=== PATIENT | male | born 1960 | race African-American/Black ===

== ENCOUNTER 2020-02-26 08:27 | Inpatient (IN) ==
[2020-02-26] MEDS ORDERED: PIPERACILLIN/TAZOBACTAM 3,375 MG in SODIUM CHLORIDE 0.9% 100 ML IV STA (09:39)
[2020-02-26] MEDS ORDERED: SODIUM CHLORIDE 0.9% 1,000 ML IV STA ×2 (09:39→11:32)
[2020-02-26 10:03] LABS: Basophils % 0.2 % (0.0-0.8); Hematocrit 42.4 VOL% (42.0-52.0); Hemoglobin 13.8 GM/DL (14.0-18.0); Immature Granulocytes Absolute 0.21 #; Lymphocytes % 4.5 % (21.2-54.2); Mean Corpuscular HGB Conc 32.5 GM/DL (32-36); Mean Corpuscular Volume 84.1 FL (87-102); Monocytes % 7.3 % (1.7-12.7); Platelet Count 504 T/CUMM (130-400); Red Blood Count 5.04 MC/CUMM (3.8-5.5); Red Cell Distribution Width 11.9 % (9.3-17.3); White Blood Count 21.5 T/CUMM (4-12)
[2020-02-26 10:21] LABS: Band Neutrophils 2 % (0-10); Lymphocytes 11 % (20-55); Segmented Neutrophils 79 % (50-85); Total Cells Counted 100
[2020-02-26 10:22] LABS: Hypochromasia Slight; Platelet Estimate Increased
[2020-02-26 10:29] LABS: Albumin 2.2 G/DL (3.4-5.0); Bilirubin,Total 0.6 MG/DL (0.2-1.0); Calcium 9.2 MG/DL (8.5-10.1); Osmolality,Calculated 273.9 MOS/KG (273-304); Total Protein 8.1 G/DL (6.4-8.3)
[2020-02-26] MEDS ORDERED: CLINDAMYCIN INJ 900 MG in PREMIX 1 EACH IV ONE (11:11)
[2020-02-26] MEDS ORDERED: HYDROmorphone 2 MG/1 ML VIAL IV PRN (11:12)
[2020-02-26] MEDS ORDERED: ONDANSETRON 4 MG/2 ML VIAL IV PRN ×2 (11:12→19:59)
[2020-02-26] MEDS ORDERED: GLUCAGON 1 MG VIAL IM PRN (11:12)
[2020-02-26] MEDS ORDERED: ACETAMINOPHEN 325 MG TABLET PO PRN (11:12)
[2020-02-26] MEDS ORDERED: DEXTROSE 50% 25 GM/50 ML VIAL IV PRN (11:12)
[2020-02-26] MEDS ORDERED: VANCOMYCIN INJ 1,000 MG in SODIUM CHLORIDE 0.9% 250 ML IV SCH (11:30)
[2020-02-26] MEDS ORDERED: hydrALAZINE 20 MG/1 ML VIAL ONE (11:31)
[2020-02-26] MEDS ORDERED: hydrALAZINE 20 MG/1 ML VIAL IV STA (11:32)
[2020-02-26] MEDS ORDERED: VANCOMYCIN 1,000 MG VIAL ONE (13:37)
[2020-02-26] MEDS: INSULIN REGULAR 100 UNIT/ML SUBCUT SCH ×2 (14:15→16:31)
[2020-02-26] MEDS ORDERED: INFLUENZA VIRUS VACCINE 0.5 ML SYRINGE IM ONE (14:25)
[2020-02-26] MEDS: LACTATED RINGERS 1,000 ML IV SCH (15:33)
[2020-02-26] MEDS: VANCOMYCIN INJ 1,500 MG in SODIUM CHLORIDE 0.9% 500 ML IV SCH (15:33)
[2020-02-26] MEDS ORDERED: SODIUM CHLORIDE 0.65% NASAL SPRAY 45 ML BOTTLE BOTH NARES PRN (16:25)
[2020-02-26] MEDS: PIPERACILLIN/TAZOBACTAM 3,375 MG in SODIUM CHLORIDE 0.9% 100 ML IV SCH (17:57)
[2020-02-26] MEDS ORDERED: LIDOCAINE 1% 20 ML VIAL ONE (18:16)
[2020-02-26] MEDS ORDERED: fentaNYL 100 MCG/2 ML VIAL ONE (19:54)
[2020-02-26] MEDS ORDERED: LIDOCAINE 2% 5 ML VIAL ONE (19:54)
[2020-02-26] MEDS ORDERED: propofoL 200 MG/20 ML VIAL IV ONE (19:54)
[2020-02-26] MEDS ORDERED: SEVOFLURANE 1 UNIT/15 MINUTE INH ONE (19:54)
[2020-02-26] MEDS ORDERED: DEXAMETHASONE 4 MG/1 ML VIAL ONE (19:55)
[2020-02-26] MEDS ORDERED: ONDANSETRON 4 MG/2 ML VIAL ONE (19:55)
[2020-02-26] MEDS ORDERED: PHENYLEPHRINE 1 MG/10 ML SYRINGE IV ONE (19:55)
[2020-02-26] MEDS: HYDROmorphone 2 MG/1 ML VIAL IV PRN ×4 (20:05→20:26)
[2020-02-27] MEDS: PIPERACILLIN/TAZOBACTAM 3,375 MG in SODIUM CHLORIDE 0.9% 100 ML IV SCH ×3 (01:24→17:49)
[2020-02-27] MEDS: DOCUSATE SODIUM 100 MG CAPSULE PO SCH ×3 (01:26→21:48)
[2020-02-27] MEDS: INSULIN REGULAR 100 UNIT/ML SUBCUT SCH ×5 (01:27→21:48)
[2020-02-27] MEDS: VANCOMYCIN INJ 1,500 MG in SODIUM CHLORIDE 0.9% 500 ML IV SCH ×2 (02:35→13:54)
[2020-02-27 06:33] LABS: Albumin 1.9 G/DL (3.4-5.0); Bilirubin,Total 1.1 MG/DL (0.2-1.0); Calcium 8.7 MG/DL (8.5-10.1); Osmolality,Calculated 280.1 MOS/KG (273-304); Total Protein 7.4 G/DL (6.4-8.3)
[2020-02-27 08:29] LABS: Bilirubin,Urine Negative (Negative); Blood, Urine Small mg/dL (Negative); Glucose,Urine (UA) >=500 mg/dL (Negative); Ketones,Urine 5 mg/dL (Negative); Mucus,Urine Occasional /LPF (Occasional); Nitrite,Urine Negative (Negative); Protein,Urine 100 MG/DL; RBC,Urine 3 /HPF (0-4); Urine Appearance CLEAR (Clear); Urine Color Yellow (Yellow); Urine Specific Gravity 1.018 (1.001-1.035); WBC,Urine <1 /HPF (0-6)
[2020-02-27] MEDS: PANTOPRAZOLE 40 MG TABLET PO SCH (09:17)
[2020-02-27] MEDS: lisinopriL 10 MG TABLET PO SCH (10:09)
[2020-02-27] MEDS: ENOXAPARIN 40 MG/0.4 ML SYRINGE SUBCUT SCH (10:11)
[2020-02-27] MEDS: LACTATED RINGERS 1,000 ML IV SCH (10:12)
[2020-02-27] MEDS: metFORMIN 500 MG TABLET PO SCH (16:35)
[2020-02-28] MEDS: VANCOMYCIN INJ 1,500 MG in SODIUM CHLORIDE 0.9% 500 ML IV SCH ×2 (01:04→15:12)
[2020-02-28] MEDS: PIPERACILLIN/TAZOBACTAM 3,375 MG in SODIUM CHLORIDE 0.9% 100 ML IV SCH ×3 (02:44→18:13)
[2020-02-28 06:05] LABS: Basophils % 0.2 % (0.0-0.8); Eosinophils % 0.2 % (0.00-10.9); Hematocrit 35.4 VOL% (42.0-52.0); Immature Granulocytes % 0.7 %; Immature Granulocytes Absolute 0.12 #; Lymphocytes # 1.8 10*3/uL (1.4-4.0); Mean Corpuscular HGB Conc 33.1 GM/DL (32-36); Mean Corpuscular Volume 84.9 FL (87-102); Monocytes % 10.5 % (1.7-12.7); Neutrophils % 78.4 % (38.7-73.9); Platelet Count 429 T/CUMM (130-400); Red Blood Count 4.17 MC/CUMM (3.8-5.5); White Blood Count 17.6 T/CUMM (4-12)
[2020-02-28 06:21] LABS: Hemoglobin 11.7 GM/DL (14.0-18.0)
[2020-02-28 06:54] LABS: Calcium 8.2 MG/DL (8.5-10.1)
[2020-02-28] MEDS: INSULIN NPH/REGULAR 70/30 100 UNIT/ML SUBCUT SCH (08:05)
[2020-02-28] MEDS: INSULIN REGULAR 100 UNIT/ML SUBCUT SCH ×4 (08:06→21:20)
[2020-02-28] MEDS: LACTATED RINGERS 1,000 ML IV SCH (08:38)
[2020-02-28] MEDS: PANTOPRAZOLE 40 MG TABLET PO SCH (08:47)
[2020-02-28] MEDS: lisinopriL 10 MG TABLET PO SCH (08:47)
[2020-02-28] MEDS: DOCUSATE SODIUM 100 MG CAPSULE PO SCH ×2 (08:47→21:14)
[2020-02-28] MEDS: ENOXAPARIN 40 MG/0.4 ML SYRINGE SUBCUT SCH (10:48)
[2020-02-28] MEDS: metFORMIN 500 MG TABLET PO SCH (17:40)
[2020-02-28] MEDS: guaiFENesin/DM ER 600-30 MG TABLET PO PRN (21:13)
[2020-02-28] MEDS: VANCOMYCIN INJ 1,250 MG in SODIUM CHLORIDE 0.9% 250 ML IV SCH (22:23)
[2020-02-29] MEDS: LACTATED RINGERS 1,000 ML IV SCH ×2 (01:03→08:20)
[2020-02-29] MEDS: PIPERACILLIN/TAZOBACTAM 3,375 MG in SODIUM CHLORIDE 0.9% 100 ML IV SCH ×3 (01:03→17:49)
[2020-02-29] MEDS: VANCOMYCIN INJ 1,250 MG in SODIUM CHLORIDE 0.9% 250 ML IV SCH ×3 (05:17→21:43)
[2020-02-29] MEDS: INSULIN REGULAR 100 UNIT/ML SUBCUT SCH ×4 (07:33→21:36)
[2020-02-29] MEDS: INSULIN NPH/REGULAR 70/30 100 UNIT/ML SUBCUT SCH ×2 (07:33→16:28)
[2020-02-29] MEDS: lisinopriL 10 MG TABLET PO SCH ×2 (07:57→09:20)
[2020-02-29] MEDS ORDERED: amLODIPine 5 MG TABLET PO SCH (09:00)
[2020-02-29] MEDS: PANTOPRAZOLE 40 MG TABLET PO SCH (09:19)
[2020-02-29] MEDS: DOCUSATE SODIUM 100 MG CAPSULE PO SCH ×2 (09:19→21:36)
[2020-02-29] MEDS: ENOXAPARIN 40 MG/0.4 ML SYRINGE SUBCUT SCH (10:31)
[2020-02-29] MEDS: metFORMIN 500 MG TABLET PO SCH (17:49)
[2020-02-29] MEDS: guaiFENesin/DM ER 600-30 MG TABLET PO PRN (18:00)
[2020-03-01] MEDS: PIPERACILLIN/TAZOBACTAM 3,375 MG in SODIUM CHLORIDE 0.9% 100 ML IV SCH ×3 (01:03→17:18)
[2020-03-01 05:27] LABS: Basophils % 0.2 % (0.0-0.8); Eosinophils # 0.1 10*3/uL (0.0-0.87); Eosinophils % 0.9 % (0.00-10.9); Hematocrit 34.1 VOL% (42.0-52.0); Hemoglobin 11.1 GM/DL (14.0-18.0); Immature Granulocytes % 0.9 %; Immature Granulocytes Absolute 0.13 #; Lymphocytes # 1.6 10*3/uL (1.4-4.0); Lymphocytes % 11.4 % (21.2-54.2); Mean Corpuscular HGB Conc 32.6 GM/DL (32-36); Mean Corpuscular Volume 84.8 FL (87-102); Mean Platelet Volume 9.8 FL (9.6-12.0); Monocytes % 8.8 % (1.7-12.7); Neutrophils % 77.8 % (38.7-73.9); Platelet Count 465 T/CUMM (130-400); Red Blood Count 4.02 MC/CUMM (3.8-5.5); Red Cell Distribution Width 11.9 % (9.3-17.3); White Blood Count 14.3 T/CUMM (4-12)
[2020-03-01] MEDS: VANCOMYCIN INJ 1,250 MG in SODIUM CHLORIDE 0.9% 250 ML IV SCH ×3 (06:12→22:25)
[2020-03-01] MEDS ORDERED: INSULIN NPH/REGULAR 70/30 100 UNIT/ML SUBCUT SCH (07:30)
[2020-03-01] MEDS: INSULIN NPH/REGULAR 70/30 100 UNIT/ML SUBCUT SCH ×2 (09:36→17:19)
[2020-03-01] MEDS: INSULIN REGULAR 100 UNIT/ML SUBCUT SCH ×4 (09:36→21:28)
[2020-03-01] MEDS: ENOXAPARIN 40 MG/0.4 ML SYRINGE SUBCUT SCH (09:36)
[2020-03-01] MEDS: amLODIPine 10 MG TABLET PO SCH (09:37)
[2020-03-01] MEDS: lisinopriL 10 MG TABLET PO SCH (09:37)
[2020-03-01] MEDS: PANTOPRAZOLE 40 MG TABLET PO SCH (09:37)
[2020-03-01] MEDS: DOCUSATE SODIUM 100 MG CAPSULE PO SCH ×2 (09:37→21:27)
[2020-03-01] MEDS: metFORMIN 500 MG TABLET PO SCH (17:18)
[2020-03-02] MEDS: PIPERACILLIN/TAZOBACTAM 3,375 MG in SODIUM CHLORIDE 0.9% 100 ML IV SCH (01:55)
[2020-03-02] MEDS: SULFAMETHOX/TRIMETHOPRIM 800-160 MG TABLET PO SCH ×3 (06:15→21:38)
[2020-03-02 07:46] LABS: Basophils % 0.1 % (0.0-0.8); Eosinophils # 0.1 10*3/uL (0.0-0.87); Eosinophils % 0.6 % (0.00-10.9); Hematocrit 35.4 VOL% (42.0-52.0); Hemoglobin 11.4 GM/DL (14.0-18.0); Immature Granulocytes % 0.8 %; Immature Granulocytes Absolute 0.12 #; Lymphocytes # 1.9 10*3/uL (1.4-4.0); Lymphocytes % 12.5 % (21.2-54.2); Mean Corpuscular HGB Conc 32.2 GM/DL (32-36); Mean Corpuscular Volume 85.5 FL (87-102); Mean Platelet Volume 9.7 FL (9.6-12.0); Platelet Count 507 T/CUMM (130-400); Red Blood Count 4.14 MC/CUMM (3.8-5.5); Red Cell Distribution Width 11.9 % (9.3-17.3)
[2020-03-02] MEDS: INSULIN REGULAR 100 UNIT/ML SUBCUT SCH ×4 (07:52→21:36)
[2020-03-02] MEDS ORDERED: metFORMIN 500 MG TABLET PO SCH (10:04)
[2020-03-02] MEDS: PANTOPRAZOLE 40 MG TABLET PO SCH (10:08)
[2020-03-02] MEDS: lisinopriL 10 MG TABLET PO SCH ×2 (10:09→21:39)
[2020-03-02] MEDS: ENOXAPARIN 40 MG/0.4 ML SYRINGE SUBCUT SCH (10:10)
[2020-03-02] MEDS: INSULIN NPH/REGULAR 70/30 100 UNIT/ML SUBCUT SCH ×2 (10:22→17:40)
[2020-03-02] MEDS: amLODIPine 10 MG TABLET PO SCH (13:09)
[2020-03-02] MEDS: DOCUSATE SODIUM 100 MG CAPSULE PO SCH ×2 (13:09→21:44)
[2020-03-03 05:44] LABS: Basophils % 0.2 % (0.0-0.8); Eosinophils # 0.1 10*3/uL (0.0-0.87); Eosinophils % 0.8 % (0.00-10.9); Hematocrit 32.4 VOL% (42.0-52.0); Hemoglobin 10.6 GM/DL (14.0-18.0); Immature Granulocytes % 1.1 %; Immature Granulocytes Absolute 0.15 #; Lymphocytes # 1.3 10*3/uL (1.4-4.0); Lymphocytes % 9.1 % (21.2-54.2); Mean Corpuscular HGB Conc 32.7 GM/DL (32-36); Mean Corpuscular Volume 85.7 FL (87-102); Mean Platelet Volume 9.7 FL (9.6-12.0); Monocytes % 7.6 % (1.7-12.7); Neutrophils % 81.2 % (38.7-73.9); Platelet Count 498 T/CUMM (130-400); Red Blood Count 3.78 MC/CUMM (3.8-5.5); Red Cell Distribution Width 12.1 % (9.3-17.3); White Blood Count 14.2 T/CUMM (4-12)
[2020-03-03 09:21] VITALS: BP 167/93
[2020-03-03] MEDS: DOCUSATE SODIUM 100 MG CAPSULE PO SCH (10:23)
[2020-03-03] MEDS: lisinopriL 10 MG TABLET PO SCH (10:24)
[2020-03-03] MEDS: ENOXAPARIN 40 MG/0.4 ML SYRINGE SUBCUT SCH (10:24)
[2020-03-03] MEDS: SULFAMETHOX/TRIMETHOPRIM 800-160 MG TABLET PO SCH (10:24)
[2020-03-03] MEDS: PANTOPRAZOLE 40 MG TABLET PO SCH (10:24)
[2020-03-03] MEDS: INSULIN REGULAR 100 UNIT/ML SUBCUT SCH (10:26)
[2020-03-03] MEDS: INSULIN NPH/REGULAR 70/30 100 UNIT/ML SUBCUT SCH (10:26)
[2020-03-03] MEDS: amLODIPine 10 MG TABLET PO SCH (10:33)
== END 2020-03-03 10:52 | disposition home health service (06) | DRG 239 ==
LOC: N.ED 08:27 → N.EDINP 11:12 → N.3E 13:09
PROVIDERS: ADMIT Student in an Organized Health Care Education/Training Program; ATTEND Student in an Organized Health Care Education/Training Program